=== PATIENT | female | born 2000 | race Caucasian/White ===

== ENCOUNTER 2025-04-19 13:20 | Emergency (ER) | payer MEDICAID, SELFPAY ==
[2025-04-19 13:31] VITALS: BP 119/77; PULSE 62; RESP 15; TEMP 36.7; O2SAT 98; BMI 24.1
[2025-04-19 13:40] LABS: Urine Pregnancy, HCG Qual. Negative (Negative)
--- NOTE | 2025-04-19 13:58 | ED_ITS ---
<Statement entered by Walter Camacho MD - 04/20/25 14:28> I was consulted by the PACO, and we discussed the complexity of the problems being addressed. I approved the treatment and management plan for this patient's care in the emergency department, thus performing a substantive portion of the medical decision making. Walter Camacho MD, GALO, FACEP Discharge Plan Disposition Patient Disposition: Home, Self-Care Condition: Good Referrals Follow up/Referrals: Provider,Referral, MD [Primary Care Provider, Medical] - See instructions Activity Restrictions/Add. Instructions Additional Instructions/Restrictions: You were seen for a missed period. Today your test was negative. Please follow up with your PCP or Radiologic Technology Instructor. Return to the ER if you have any additional concerns. Clinical Impressions Clinical Impression: Amenorrhea Instructions Patient Instructions: Absent Periods Print Language Print Language: Chinese Discharge ED Provider: Walter Camacho General Adult HPI General Chief complaint: Urogenital-Female Stated complaint: Abdominal Pain Time Seen by Provider: 04/19/25 13:27 Mode of Arrival: EMS Source of Information: Patient and EMS Description of Symptoms (Recalled from ER Triage Doc. by RN): pt wants to know if she is . lmp first week of mar. History of Present Illness HPI narrative: Patient presents with possible . She reports LMP 6 weeks ago on 03/03. She took a home test a few days ago and it was negative. She did have some spotting last week. She is afebrile. Denies N/V. complaint: possible Onset (ago): unknown Relieving factors: none Exacerbating factors: none Associated symptoms: denies other symptoms Treatments prior to arrival: none Related Data Allergies Allergy/AdvReac Type Severity Reaction Status Date / Time nut - unspecified Allergy Anaphylaxis Verified 04/19/25 13:36 [facility] Disclaimer: The information contained in this section may have been updated after the patient was seen, as this information can be updated by other users. Social History Smoking Status: Current every day smoker alcohol intake: never current occupational status: unemployed Travel in the last 8 weeks?: Inside the [place] ROS Obtained: Yes Systems reviewed as appropriate & no additional complaints except as documented Physical Exam General General appearance: alert and in no apparent distress Head Head exam: atraumatic and normocephalic Eye Eye exam: Present normal appearance and EOMI Chest Chest inspection: Present symmetric chest wall rise Respiratory Respiratory exam: Present normal lung sounds bilaterally; Absent wheezes or stridor Cardiovascular Cardiovascular exam: Present regular rate and normal rhythm; Absent systolic murmur Abdominal Exam Abdominal exam: Present soft and normal bowel sounds; Absent distention, guarding, rebound or rigidity Extremities Exam Extremities exam: Present full ROM Neurological Exam Neurological exam: Present alert and oriented X3 Psychiatric Psychiatric exam: Present normal affect and normal mood Skin Skin exam: Present warm, dry and intact Medical Decision Making Medical Records Screening: Per USPSTF and CDC recommendations, given the prevalence of disease in our region, it is our hospital?s policy to screen for HIV and viral Hepatitis for all patients aged 18 and over and those with ongoing risk factors. Avinash Inquiry Pt receiving controlled substance: No Vital Signs: 04/19/25 13:31 04/19/25 14:27 Temperature 98.1 F 98.4 F Temperature Source Oral Pulse Rate 72 Pulse Rate [Right] 62 Respiratory Rate 15 16 Blood Pressure 112/69 Blood Pressure [Right Arm] 119/77 Blood Pressure Mean [Right Arm] 91 02 Sat by Pulse Oximetry 98 Lab Data Lab Results 04/19/25 13:25: Urine HCG, Qual Negative Orders (Tests/Meds): ORDERS Category Date Time Status Urine , HCG Qual. Stat Lab 04/19/25 13:25 Completed Medical Decision Narrative: In summary patient is a 24-year-old female who presents the emergency department for evaluation of requesting test for missed menstrual cycle. Patient is hemodynamically upon arrival, afebrile. Unremarkable physical exam. Differential diagnosis includes early , miscarriage given recent spotting, irregular menses. Initial workup will be conducted with hCG. Initial LABS SHOW include hCG negative. Upon repeat evaluation patient is resting comfortable. Given this patient is appropriate for discharge home at this time with follow-up instructions., As well as return precaution. Critical Care Critical Care Time Critical Care Time: No
[2025-04-19 14:27] VITALS: BP 112/69; PULSE 72; RESP 16; TEMP 36.9; O2SAT 99
== END 2025-04-19 14:28 | disposition home or self-care (01) ==
PROVIDERS: Emergency Provider Student in an Organized Health Care Education/Training Program
DX: N91.2 Amenorrhea, unspecified (principal)
CPT/HCPCS: 81025; 99282

== ENCOUNTER 2025-04-28 13:07 | Outpatient (CLI) | payer MEDICAID, SELFPAY ==
--- NOTE | 2025-04-28 13:10 | XR_ITS ---
FINAL REPORT CLINICAL HISTORY: abdominal pain FINDINGS: An AP view of the abdomen with coned-down view of the pelvis was obtained. There is a nonspecific, nonobstructive bowel gas pattern. A large amount of stool is present. No abnormal calcifications are identified. IMPRESSION: Large amount of stool. Nonspecific, nonobstructive bowel gas pattern. Reviewed, Interpreted and Dictated by Domingo Ames MD Transcribed by Liza Vasquez Authenticated and [facility]
--- NOTE | 2025-04-28 13:10 | XR_ITS ---
FINAL REPORT CLINICAL HISTORY: Asthma FINDINGS: 2 views of the chest were obtained . The heart is normal in size. The mediastinum is within normal limits. The lungs are clear. There is no pneumothorax. Osseous structures are unremarkable. IMPRESSION: No acute cardiopulmonary process. Reviewed, Interpreted and Dictated by Domingo Ames MD Transcribed by Liza Vasquez Authenticated and [facility]
== END 2025-04-28 23:59 | disposition home or self-care (01) ==
LOC: RAD 13:09
PROVIDERS: PCP Nurse Practitioner Family; Visit Provider Nurse Practitioner Family
DX: J45.909 Unspecified asthma, uncomplicated (principal); R10.9 Unspecified abdominal pain; R93.3 Abnormal findings on diagnostic imaging of other parts of digestive tract
CPT/HCPCS: 71046; 74019

== ENCOUNTER 2025-05-06 12:14 | Outpatient (CLI) | payer MEDICAID, SELFPAY ==
--- NOTE | 2025-05-06 12:30 | XR_ITS ---
FINAL REPORT CLINICAL HISTORY: pain in pelvis, constipation COMPARISON: 04/28/2025 FINDINGS: A single supine view of the abdomen was obtained. There is a large amount of stool in the colon, consistent with constipation. Otherwise, the bowel gas pattern is unremarkable. There are no pathologic calcifications. Osseous structures are within normal limits. IMPRESSION: Large amount of stool in the colon consistent with constipation. Reviewed, Interpreted and Dictated by Devi Monsivais MD Transcribed by Liza Vasquez Authenticated and . [facility]
[2025-05-06 12:43] LABS: Hematocrit 43.7 % (37.0-47.0); Hemoglobin 14.0 g/dL (12.2-16.2); Immature Granulocytes % 0.4 %; Mean Corpuscular HGB Conc 32.0 g/dL (31.8-35.4); Mean Corpuscular Hemoglobin 27.2 pg (27.0-31.2); Mean Corpuscular Volume 84.9 fl (81-99); Nucleated Red Blood Cells % 0 %; Platelet Count 374 K/mm3 (142-424); Red Blood Count 5.15 M/mm3 (4.20-5.40); Red Cell Distribution Width-SD 41.0 fL; White Blood Count 8.4 K/mm3 (4.8-10.8)
[2025-05-06 13:21] LABS: Albumin Level 4.3 g/dl (3.5-5.0); Chloride 104 mmol/L (98-107); Potassium 4.7 mmoL/L (3.5-5.1); Sodium 136 mmol/L (136-145)
[2025-05-06 13:23] LABS: Blood Urea Nitrogen 15 mg/dl (7-17); Creatinine,Serum 0.70 mg/dl (0.52-1.04); Estimated Glomerular Filt Rate 104 ml/min (>60); GFR (African American) 125 ML/MIN (>60)
[2025-05-06 13:24] LABS: Alanine Aminotransferase 13 U/L (12-78); Albumin/Globulin Ratio 1.7 (1.1-1.8); Alkaline Phosphatase 84 U/L (38-126); Anion Gap 10.7 mEq/L (5-15); Aspartate Amino Transferase 22 U/L (14-36); Bilirubin,Total 0.3 mg/dl (0.2-1.3); Calcium 8.9 mg/dl (8.4-10.2); Carbon Dioxide 26 mmol/L (22.0-30.0); Globulin 2.5 g/dL (1.3-3.2); Glucose 77 mg/dl (74-100); Total Protein,Serum 6.8 g/dl (6.3-8.2)
== END 2025-05-06 23:59 | disposition home or self-care (01) ==
LOC: LAB 12:15
PROVIDERS: PCP Nurse Practitioner Family; Visit Provider Nurse Practitioner Family
DX: K59.00 Constipation, unspecified (principal); R10.20 Pelvic and perineal pain unspecified side
CPT/HCPCS: 36415; 74018; 80053; 85025

== ENCOUNTER 2025-05-07 10:21 | Outpatient (CLI) | payer MEDICAID, SELFPAY ==
--- NOTE | 2025-05-07 11:00 | US_ITS ---
PROCEDURE: US PELVIC CLINICAL INDICATION: COMPARISON: No exams were available for comparison FINDINGS: Transabdominal sonographic images of the pelvis were obtained. Patient declined transvaginal ultrasound. UTERUS: 7.8cm x 5.5cmx 4.0cm anteverted with a combined endometrial thickness of 10.5 mm. LEFT OVARY: 3.8 cmx3.2cmx2.6cm with a volume of 16.6ml. There is a follicle measuring 0.9 cm in size. RIGHT OVARY: 3.0 cmx 2.0cmx1.8 cm with a volume of 5.5ml. There are several small peripheral follicles. Both ovaries are seen and appear normal. Doppler flow to both ovaries are seen. There is a small amount of fluid in the cul-de-sac. IMPRESSION: 1. Anteverted uterus normal in shape and size. The endometrium is normal measuring 10.5 mm. 2. Both ovaries are seen and appear normal. There is a follicle in the left ovary and several small peripheral follicles in the right ovary. 3. There was a small amount of fluid in the cul-de-sac which may be physiologic or inflammatory. Dictated by: Mahesh Mabry MD 05/07/2025 12:00 Mahesh Mabry MD in [place] 05/07/2025 12:00
== END 2025-05-07 23:59 | disposition home or self-care (01) ==
LOC: RAD 10:21
PROVIDERS: PCP Nurse Practitioner Family; Visit Provider Nurse Practitioner Family
DX: N85.4 Malposition of uterus (principal); N83.02 Follicular cyst of left ovary; N83.01 Follicular cyst of right ovary; R93.89 Abnormal findings on diagnostic imaging of other specified body structures; R10.20 Pelvic and perineal pain unspecified side
CPT/HCPCS: 76856

== ENCOUNTER 2025-05-16 13:58 | Emergency (ER) | payer MEDICAID, SELFPAY ==
--- NOTE | 2025-05-16 14:00 | ECG_ITS ---
APPROVED REPORT Exam: Resting ECG HR:66 bpm ECG Measurements Heart Rate 66 AXES VA 124 P 64 QRSd 77 QRS 76 QT 412 T 70 QTc 426 Conclusion SINUS RHYTHM POSSIBLE RIGHT VENTRICULAR CONDUCTION DELAY [RSR (QR) IN V1/V2] BORDERLINE ECG UNCONFIRMED REPORT Normal sinus rhythm. No ST elevation or depression. QTc of 426 Electronically signed by : AILYN SAINZ, 05/17/2025 07:02:14
[2025-05-16 14:04] VITALS: BP 126/72; PULSE 74; O2SAT 100
--- NOTE | 2025-05-16 14:04 | PC.NURSE ---
DR SAINZ AT BEDSIDE
[2025-05-16 14:11] VITALS: BP 126/72; PULSE 82; RESP 16; TEMP 36.7; O2SAT 100; BMI 16.7
--- NOTE | 2025-05-16 14:14 | XR_ITS ---
FINAL REPORT TECHNIQUE: Single view chest CLINICAL HISTORY: Seizure COMPARISON: 04/28/2025 FINDINGS: A single view of the chest was obtained. The heart and mediastinum are within normal limits. The lungs are clear. There is no pneumothorax. IMPRESSION: No acute cardiopulmonary process. Reviewed, Interpreted and Dictated by Jason Gao MD Transcribed by Liza Vasquez Authenticated and [facility]
--- NOTE | 2025-05-16 14:14 | CT_ITS ---
FINAL REPORT TECHNIQUE: Noncontrast exam This study was performed with techniques to keep radiation doses as low as reasonably achievable, (ALARA). Individualized dose reduction techniques using automated exposure control or adjustment of mA and/or kV according to the patient''s size were employed. 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 There is no edema or hemorrhage. 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 Ventricles are normal. No mass effect is seen. Bone windows show no evidence of fracture. IMPRESSION: Congenital abnormalities as above. Recommend noncontrast MR correlation. No acute findings Reviewed, Interpreted and Dictated by Jason Gao MD Transcribed by Mame Grady Authenticated and [facility]
--- NOTE | 2025-05-16 14:15 | HMH.EDGENADL ---
Discharge Plan Disposition Patient Disposition: Home, Self-Care Condition: Good Prescriptions Prescriptions: No Action triamcinolone acetonide 0.1 % cream 1 applic topical TID 14 Days Qty: 80 0RF cetirizine 10 mg tablet 10 mg PO DAILY PRN (Reason: hives) Qty: 30 0RF sennosides [Senokot] 8.6 mg tablet 8.6 mg PO BID PRN (Reason: constipation) Qty: 30 0RF albuterol sulfate [Ventolin HFA] 90 mcg/actuation HFA aerosol inhaler 2 puff inhalation Q4-6H PRN (Reason: shortness of breath or wheezing) Qty: 8.5 2RF polyethylene glycol 3350 [Miralax] 17 gram/dose powder 17 g PO BID Qty: 238 0RF Referrals Follow up/Referrals: Yamila Brownlee APRN [Primary Care Provider, Medical] - See instructions Activity Restrictions/Add. Instructions Additional Instructions/Restrictions: Please ask Yamila Brownlee about referrals for psychiatry and neurology for your psychogenic non-epileptic seizures. Please do not drive for the next 3 months. If you have any new or worsening symptoms please return. Clinical Impressions Clinical Impression: Seizure-like activity Instructions Patient Instructions: DI for Seizure Disorder in Adults, DI for Seizure (Not Epilepsy/Seizure Disorder), DI for Seizure Disorder in Child Print Language Print Language: Portuguese Discharge ED Provider: Anton Kc General Adult HPI <Etienne Chaidez MD - Last Filed: 05/16/25 15:08> General Chief complaint: Seizure Stated complaint: seizures Time Seen by Provider: 05/16/25 14:02 Mode of Arrival: Ambulatory Source of Information: Patient Limitations: No Limitations History of Present Illness HPI narrative: Jeannette Zelaya is a 24y female with a history of seizures, migraines, COPD, bipolar 1 disorder, ADHD, autism, PTSD who presents to the emergency department for complaints of a seizure. Patient states that she was at her PCP office and when PCP walked in, she had been seizing for 10 minutes. She states that she came out of the seizure on her own. Boyfriend at bedside states that she is having multiple seizures a day and was supposed to be taking Topamax, however states that she has more seizures when taking Topamax. He states that stress seems to bring the seizures on. He also states that at night, he would notice that she twitches frequently and thinks that she is having seizures while she was sleeping as well. Patient states that she is oftentimes able to bring herself out of the seizures or that a loud noise or jerking motion will stop the seizure. Sometimes it is full body jerking and other times it is just staring off into space. Boyfriend states that if she takes a delta 8 gummy, she does not have seizures. Related Data Previous Rx's ?Medication ?Instructions ?Recorded cetirizine 10 mg tablet 10 mg PO DAILY PRN hives #30 tabs 04/28/25 triamcinolone acetonide 0.1 % 1 applic topical TID 14 days #80 04/28/25 topical cream grams sennosides 8.6 mg tablet (Senokot) 8.6 mg PO BID PRN constipation #30 04/29/25 tabs albuterol sulfate 90 mcg/actuation 2 puff inhalation Q4-6H PRN 05/16/25 aerosol inhaler (Ventolin HFA) shortness of breath or wheezing #8.5 grams polyethylene glycol 3350 17 17 g PO BID #238 grams 05/16/25 gram/dose oral powder (Miralax) Allergies Allergy/AdvReac Type Severity Reaction Status Date / Time Penicillins Allergy Mild Rash Verified 05/16/25 13:18 nut - unspecified Allergy Anaphylaxis Verified 05/16/25 13:18 adhesive tape AdvReac Mild burning, Verified 05/16/25 13:18 rash, sob latex AdvReac Mild Rash and Verified 05/16/25 13:18 shortness of breath [facility] <Etienne Chaidez MD - Last Filed: 05/16/25 15:08> [facility] Disclaimer: The information contained in this section may have been updated after the patient was seen, as this information can be updated by other users. Medical History Autism ADHD Bipolar 1 disorder Post traumatic stress disorder (PTSD) COPD (chronic obstructive pulmonary disease) Schizoaffective disorder Migraine Seizure Surgical History H/O eye surgery Social History Smoking Status: Current every day smoker tobacco type: e-cigarettes smoking status start date: 2022 alcohol intake: never substance use type: denies use current occupational status: disabled Travel in the last 8 weeks?: None Have you lived/traveled outside US in past 30 days?: No Contact w/someone who lives/traveled outside US past 30 days?: No Exposure to someone with infectious disease in past 14 days?: No Do you have a fever (greater than 100.4 F or 38 C)?: No Have you tested positive for COVID-19?: No Exposed to someone with COVID-19 in past 14 days?: No Do you have a sore throat?: No Do you have a cough?: No Do you have any weakness?: No Do you have any diarrhea?: No Are you experiencing any unusual bleeding?: No Do you have any muscle aches/pain?: No Do you have any abdominal pain?: No Are you experiencing loss of taste or smell?: No <Etienne Chaidez MD - Last Filed: 05/16/25 15:08> ROS Obtained: Yes Systems reviewed as appropriate & no additional complaints except as documented Physical Exam <Etienne Chaidez MD - Last Filed: 05/16/25 15:08> General General appearance: alert and in no apparent distress Head Head exam: atraumatic Eye Eye exam: Present normal appearance ENT ENT exam: Present normal external ear exam Neck Neck exam: Present full ROM Chest Chest inspection: Present symmetric chest wall rise Respiratory Respiratory exam: Present normal lung sounds bilaterally; Absent respiratory distress, wheezes or stridor Cardiovascular Cardiovascular exam: Present regular rate and normal rhythm Abdominal Exam Abdominal exam: Present soft; Absent tenderness or guarding Extremities Exam Extremities exam: Present normal inspection Back Exam Back exam: Present normal inspection Neurological Exam Neurological exam: Present alert and oriented X3 Psychiatric Psychiatric exam: Present normal affect Skin Skin exam: Present warm and dry Medical Decision Making <Etienne Chaidez MD - Last Filed: 05/16/25 15:08> Medical Records Screening: Per USPSTF and CDC recommendations, given the prevalence of disease in our region, it is our hospital?s policy to screen for HIV and viral Hepatitis for all patients aged 18 and over and those with ongoing risk factors. Avinash Inquiry Pt receiving controlled substance: No Vital Signs: 05/16/25 14:04 05/16/25 14:11 05/16/25 14:30 Temperature 98.0 F Temperature Source Oral Pulse Rate 74 69 Pulse Rate [Radial] 82 Respiratory Rate 16 Blood Pressure 126/72 120/87 Blood Pressure [Right Arm] 126/72 Blood Pressure Mean [Right Arm] 90 Blood Pressure Source [Right Arm] Automatic Cuff Blood Pressure Position [Right Arm] Sitting 02 Sat by Pulse Oximetry 100 100 100 Oxygen Delivery Method Room Air Room Air Room Air 05/16/25 15:00 05/16/25 15:30 Temperature Temperature Source Pulse Rate 76 63 Pulse Rate [Radial] Respiratory Rate Blood Pressure 120/66 120/79 Blood Pressure [Right Arm] Blood Pressure Mean [Right Arm] Blood Pressure Source [Right Arm] Blood Pressure Position [Right Arm] 02 Sat by Pulse Oximetry 99 98 Oxygen Delivery Method Room Air Room Air Lab Data Lab Results 05/16/25 14:22: WBC 8.2, RBC 5.07, Hgb 13.8, Hct 42.8, MCV 84.4, MCH 27.2, MCHC 32.2, RDW 13.2, Plt Count 357, MPV 10.1, Neut % (Auto) 66.1, Lymph % (Auto) 19.1, Bosque % (Auto) 10.1 H, Eos % (Auto) 3.6, Baso % (Auto) 0.9, Neut # (Auto) 5.4, Lymph # (Auto) 1.6, Bosque # (Auto) 0.8, Eos # (Auto) 0.3, Baso # (Auto) 0.1, Sodium 137, Potassium 3.6, Chloride 109 H, Carbon Dioxide 21 L, Anion Gap 10.6, BUN 8, Creatinine 0.80, Estimated Creat Clear 81, Estimated GFR 89, Est GFR ( Amer) 108, Glucose 81, Calcium 9.0, Magnesium 2.0, Total Bilirubin 0.4, AST 28, ALT 17, Alkaline Phosphatase 86, Total Creatine Kinase 107, Total Protein 7.5, Albumin 4.1, Globulin 3.4 H, Albumin/Globulin Ratio 1.2, Serum HCG, Qual Negative, Urine Color Yellow, Urine Appearance Clear, Urine pH 6.0, Ur Specific Hamilton 1.020, Urine Protein Negative, Urine Glucose (UA) Negative, Urine Ketones Negative, Urine Blood Negative, Urine Nitrate Positive A, Urine Bilirubin Negative, Urine Urobilinogen 0.2, Ur Leukocyte Esterase Negative, Urine RBC None, Urine WBC None, Ur Squamous Epith Cells 3-5, Urine Bacteria 3+, Urine Opiates Screen Negative, Urine Methadone Screen Negative, Ur Barbituates Screen Negative, Ur Phencyclidine Scrn Negative, Ur Amphetamines Screen Negative, U Benzodiazepines Scrn Negative, Urine Cocaine Screen Negative, U Marijuana (THC) Screen Negative 05/16/25 14:27: VBG pH 7.31, VBG pCO2 40.9, VBG pO2 42.1 H, VBG HCO3 20.1 L, VBG Total CO2 21.3 L, VBG O2 Saturation 74.3 H, VBG Base Excess -6.2 L, VBG Lactic Acid 1.3 05/16/25 14:22 05/16/25 14:22 Orders (Tests/Meds): ORDERS Category Date Time Status CT head/brain wo con Stat Cat Scan 05/16/25 14:14 Completed CXR --portable [XR chest portable] Stat Exams 05/16/25 14:14 Completed CBC w/Auto Diff [Complete Blood Count Auto Diff] Stat Lab 05/16/25 14:22 Completed CK [Creatine Kinase] Stat Lab 05/16/25 14:22 Completed CMP [Comprehensive Metabolic Panel] Stat Lab 05/16/25 14:22 Completed Magnesium Stat Lab 05/16/25 14:22 Completed Serum [HCG Qualitative, Serum] Stat Lab 05/16/25 14:22 Completed UA [Urinalysis and Microscopic] Stat Lab 05/16/25 14:22 Completed UDS [Drug Screen,Urine] Stat Lab 05/16/25 14:22 Completed Urine Culture Stat Micro 05/16/25 14:22 Received Urine Culture Stat Micro 05/16/25 15:19 Ordered VBG [Venous Blood Gas] Stat RT 05/16/25 14:27 Completed ECG Data Tracing #1: I reviewed this ECG and interpreted as documented below: Normal sinus rhythm. No ST elevation or depression. QTc normal at 426 Medical Decision Narrative: Jeannette Zelaya is a 24y female with a history of seizures, migraines, COPD, bipolar 1 disorder, ADHD, autism, PTSD who presents to the emergency department for complaints of a seizure. Patient states that she was at her PCP office and when PCP walked in, she had been seizing for 10 minutes. She states that she came out of the seizure on her own. Boyfriend at bedside states that she is having multiple seizures a day and was supposed to be taking Topamax, however states that she has more seizures when taking Topamax. He states that stress seems to bring the seizures on. He also states that at night, he would notice that she twitches frequently and thinks that she is having seizures while she was sleeping as well. Patient states that she is oftentimes able to bring herself out of the seizures or that a loud noise or jerking motion will stop the seizure. Sometimes it is full body jerking and other times it is just staring off into space. Boyfriend states that if she takes a delta 8 gummy, she does not have seizures. 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 On arrival, patient is hemodynamically stable, afebrile, on a percent SpO2 on room air. Breathing comfortably and in no distress. She is alert and oriented. She is moving all extremities with no focal neurological deficit. Cardiopulmonary exam without wheezing, rales or rhonchi. Abdomen soft, nontender nondistended. Differential diagnosis includes, but is not limited to: Breakthrough seizures, provoked seizures,, electrolyte derangement, metabolic derangement, psychogenic nonepileptic seizures, intracranial mass, cardiac arrhythmia, among others. The most morbid conditions were considered and workup was based on these. Workup in the emergency room included: Urinalysis, magnesium level, serum test, UA, UDS, CK, CMP, CBC, VBG with lactate,, CT head without contrast, Chest x-ray EKG shows normal sinus rhythm. No ischemic changes. See interpretation above Patient's workup shows no leukocytosis, no anemia, platelets within normal limits, VBG without acidosis or alkalosis. Bicarb mildly low at 20.1, lactate normal at 1.3. Electrolytes within normal limits. No MANINDER. Liver enzymes and bilirubin within normal notes. Magnesium normal at 2.0. Serum pricey test negative. Creatine kinase negative at 107. Urine is nitrate positive but no white blood cells or red blood cells and no leukocyte esterase. Bacteria 3+. Low concern for urinary tract infection given patient has no symptoms of a urinary tract infection. Chest x-ray interpreted by me personally. No focal consolidation, no pneumothorax, no widened mediastinum, no enlargement of the cardiac silhouette. Unremarkable chest x-ray. See radiology report for details. At this time, patient's care was handed off to the oncoming physician pending completion of patient's CT imaging and reassessment. <Anton Kc, - Last Filed: 05/16/25 16:41> Medical Records Medical records reviewed: Yes I reviewed the patient's medical records. Vital Signs: 05/16/25 14:04 05/16/25 14:11 05/16/25 14:30 Temperature 98.0 F Temperature Source Oral Pulse Rate 74 69 Pulse Rate [Radial] 82 Respiratory Rate 16 Blood Pressure 126/72 120/87 Blood Pressure [Right Arm] 126/72 Blood Pressure Mean [Right Arm] 90 Blood Pressure Source [Right Arm] Automatic Cuff Blood Pressure Position [Right Arm] Sitting 02 Sat by Pulse Oximetry 100 100 100 Oxygen Delivery Method Room Air Room Air Room Air 05/16/25 15:00 05/16/25 15:30 Temperature Temperature Source Pulse Rate 76 63 Pulse Rate [Radial] Respiratory Rate Blood Pressure 120/66 120/79 Blood Pressure [Right Arm] Blood Pressure Mean [Right Arm] Blood Pressure Source [Right Arm] Blood Pressure Position [Right Arm] 02 Sat by Pulse Oximetry 99 98 Oxygen Delivery Method Room Air Room Air Lab Data Lab Results 05/16/25 14:22: WBC 8.2, RBC 5.07, Hgb 13.8, Hct 42.8, MCV 84.4, MCH 27.2, MCHC 32.2, RDW 13.2, Plt Count 357, MPV 10.1, Neut % (Auto) 66.1, Lymph % (Auto) 19.1, Bosque % (Auto) 10.1 H, Eos % (Auto) 3.6, Baso % (Auto) 0.9, Neut # (Auto) 5.4, Lymph # (Auto) 1.6, Bosque # (Auto) 0.8, Eos # (Auto) 0.3, Baso # (Auto) 0.1, Sodium 137, Potassium 3.6, Chloride 109 H, Carbon Dioxide 21 L, Anion Gap 10.6, BUN 8, Creatinine 0.80, Estimated Creat Clear 81, Estimated GFR 89, Est GFR ( Amer) 108, Glucose 81, Calcium 9.0, Magnesium 2.0, Total Bilirubin 0.4, AST 28, ALT 17, Alkaline Phosphatase 86, Total Creatine Kinase 107, Total Protein 7.5, Albumin 4.1, Globulin 3.4 H, Albumin/Globulin Ratio 1.2, Serum HCG, Qual Negative, Urine Color Yellow, Urine Appearance Clear, Urine pH 6.0, Ur Specific Hamilton 1.020, Urine Protein Negative, Urine Glucose (UA) Negative, Urine Ketones Negative, Urine Blood Negative, Urine Nitrate Positive A, Urine Bilirubin Negative, Urine Urobilinogen 0.2, Ur Leukocyte Esterase Negative, Urine RBC None, Urine WBC None, Ur Squamous Epith Cells 3-5, Urine Bacteria 3+, Urine Opiates Screen Negative, Urine Methadone Screen Negative, Ur Barbituates Screen Negative, Ur Phencyclidine Scrn Negative, Ur Amphetamines Screen Negative, U Benzodiazepines Scrn Negative, Urine Cocaine Screen Negative, U Marijuana (THC) Screen Negative 05/16/25 14:27: VBG pH 7.31, VBG pCO2 40.9, VBG pO2 42.1 H, VBG HCO3 20.1 L, VBG Total CO2 21.3 L, VBG O2 Saturation 74.3 H, VBG Base Excess -6.2 L, VBG Lactic Acid 1.3 Orders (Tests/Meds): ORDERS Category Date Time Status CT head/brain wo con Stat Cat Scan 05/16/25 14:14 Completed CXR --portable [XR chest portable] Stat Exams 05/16/25 14:14 Completed CBC w/Auto Diff [Complete Blood Count Auto Diff] Stat Lab 05/16/25 14:22 Completed CK [Creatine Kinase] Stat Lab 05/16/25 14:22 Completed CMP [Comprehensive Metabolic Panel] Stat Lab 05/16/25 14:22 Completed Magnesium Stat Lab 05/16/25 14:22 Completed Serum [HCG Qualitative, Serum] Stat Lab 05/16/25 14:22 Completed UA [Urinalysis and Microscopic] Stat Lab 05/16/25 14:22 Completed UDS [Drug Screen,Urine] Stat Lab 05/16/25 14:22 Completed Urine Culture Stat Micro 05/16/25 14:22 Received Urine Culture Stat Micro 05/16/25 15:19 Ordered VBG [Venous Blood Gas] Stat RT 05/16/25 14:27 Completed Medical Decision Narrative: Jeannette Zelaya is a 24y female with a history of seizures, migraines, COPD, bipolar 1 disorder, ADHD, autism, PTSD who presents to the emergency department for complaints of a seizure. Patient states that she was at her PCP office and when PCP walked in, she had been seizing for 10 minutes. She states that she came out of the seizure on her own. Boyfriend at bedside states that she is having multiple seizures a day and was supposed to be taking Topamax, however states that she has more seizures when taking Topamax. He states that stress seems to bring the seizures on. He also states that at night, he would notice that she twitches frequently and thinks that she is having seizures while she was sleeping as well. Patient states that she is oftentimes able to bring herself out of the seizures or that a loud noise or jerking motion will stop the seizure. Sometimes it is full body jerking and other times it is just staring off into space. Boyfriend states that if she takes a delta 8 gummy, she does not have seizures. 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 On arrival, patient is hemodynamically stable, afebrile, on a percent SpO2 on room air. Breathing comfortably and in no distress. She is alert and oriented. She is moving all extremities with no focal neurological deficit. Cardiopulmonary exam without wheezing, rales or rhonchi. Abdomen soft, nontender nondistended. Differential diagnosis includes, but is not limited to: Breakthrough seizures, provoked seizures,, electrolyte derangement, metabolic derangement, psychogenic nonepileptic seizures, intracranial mass, cardiac arrhythmia, among others. The most morbid conditions were considered and workup was based on these. Workup in the emergency room included: Urinalysis, magnesium level, serum test, UA, UDS, CK, CMP, CBC, VBG with lactate,, CT head without contrast, Chest x-ray EKG shows normal sinus rhythm. No ischemic changes. See interpretation above Patient's workup shows no leukocytosis, no anemia, platelets within normal limits, VBG without acidosis or alkalosis. Bicarb mildly low at 20.1, lactate normal at 1.3. Electrolytes within normal limits. No MANINDER. Liver enzymes and bilirubin within normal notes. Magnesium normal at 2.0. Serum pricey test negative. Creatine kinase negative at 107. Urine is nitrate positive but no white blood cells or red blood cells and no leukocyte esterase. Bacteria 3+. Low concern for urinary tract infection given patient has no symptoms of a urinary tract infection. Chest x-ray interpreted by me personally. No focal consolidation, no pneumothorax, no widened mediastinum, no enlargement of the cardiac silhouette. Unremarkable chest x-ray. See radiology report for details. At this time, patient's care was handed off to the oncoming physician pending completion of patient's CT imaging and reassessment. This is Dr. Kc. At the time of shift change patient was waiting on a CT scan of the head to result. I did independently evaluate the patient and obtained collateral history. She tells her that she recently moved here from [place]. She states that while she was in [place] she had an extensive workup at a neurologist for seizures with CT scans of the head, MRI, and EEG monitoring. She states they were never able to catch true seizure activity on her EEG studies. She states that she was formally told that she had psychogenic nonepileptic seizures and she further states that she typically only has seizures when she is feeling extraordinarily stressed. As stated above the patient was in the clinic today and ended up having some seizure-like activity reported by her primary care provider and was transferred here for further evaluation. While under my care in the emergency department her boyfriend at the bedside did alert us that she was having seizure-like activity. Upon entering the room the patient was laying on the stretcher and was experiencing no abnormal movements. Her eyes were fixed in the forward position and she did not respond to externally applied stimuli. She did not have any tachycardia or hypoxia developed during the seizure. No tonic-clonic shaking. This was transient and short-lived. She quickly returned to her baseline mental status and did not have any evidence of a postictal episode. CT scan did result and demonstrated no acute findings. There is some discussion about congenital cerebellar abnormalities. I relayed this to the patient and she states that she was told this in the past from her prior CTs and MRIs and does not seem to be concerned about this. I have thoroughly discussed with the patient that her seizures do not appear to be typical of a true underlying seizure disorder and that I do agree with her prior assessment that this is likely psychogenic nonepileptic seizures. I have asked her to follow back up with her primary care physician and pursue psychiatry as well as neurology follow-up. At this time all question have been answered and all parties are agreeable with the decision to discharge home Critical Care <Etienne Chaidez MD - Last Filed: 05/16/25 15:08> Critical Care Time Critical Care Time: No
[2025-05-16 14:29] LABS: Hematocrit 42.8 % (37.0-47.0); Hemoglobin 13.8 g/dL (12.2-16.2); Immature Granulocytes % 0.2 %; Mean Corpuscular HGB Conc 32.2 g/dL (31.8-35.4); Mean Corpuscular Hemoglobin 27.2 pg (27.0-31.2); Mean Corpuscular Volume 84.4 fl (81-99); Nucleated Red Blood Cells % 0 %; Platelet Count 357 K/mm3 (142-424); Red Blood Count 5.07 M/mm3 (4.20-5.40); Red Cell Distribution Width-SD 40.2 fL; White Blood Count 8.2 K/mm3 (4.8-10.8)
[2025-05-16 14:29] LABS: Lactate Venous 1.3 mmol/L (0.4-2.0); VBG HCO3 20.1 mmol/L (23-30); VBG PCO2 40.9 mmol/L (35-51); VBG PH 7.31 mmol/L (7.31-7.41); VBG PO2 42.1 mmol/L (28-40)
[2025-05-16 14:30] VITALS: BP 120/87; PULSE 69; O2SAT 100
[2025-05-16 14:37] LABS: Alanine Aminotransferase 17 U/L (12-78); Albumin Level 4.1 g/dl (3.5-5.0); Albumin/Globulin Ratio 1.2 (1.1-1.8); Alkaline Phosphatase 86 U/L (38-126); Anion Gap 10.6 mEq/L (5-15); Aspartate Amino Transferase 28 U/L (14-36); Bilirubin,Total 0.4 mg/dl (0.2-1.3); Blood Urea Nitrogen 8 mg/dl (7-17); Calcium 9.0 mg/dl (8.4-10.2); Carbon Dioxide 21 mmol/L (22.0-30.0); Chloride 109 mmol/L (98-107); Creatine Kinase 107 U/L (30-135); Creatinine Clearance Estimated 81 mL/min (50-200); Creatinine,Serum 0.80 mg/dl (0.52-1.04); Estimated Glomerular Filt Rate 89 ml/min (>60); GFR (African American) 108 ML/MIN (>60); Globulin 3.4 g/dL (1.3-3.2); Glucose 81 mg/dl (74-100); Magnesium 2.0 mg/dl (1.6-2.3); Potassium 3.6 mmoL/L (3.5-5.1); Sodium 137 mmol/L (136-145); Total Protein,Serum 7.5 g/dl (6.3-8.2)
[2025-05-16 14:45] LABS: HCG Qualitative, Serum Negative (Negative); Microscopic, Urine URINE MICROSCOPIC (MICROSCOPIC)
[2025-05-16 14:48] LABS: Bilirubin,Urine Negative (Negative); Color,Urine YELLOW (Yellow); Glucose,Urine (UA) Negative (Negative); Ketones,Urine Negative (Negative); Leukocyte Esterase,Urine Negative (Negative); PH,Urine 6.0 (5.0-8.5); Protein,Urine Negative (Negative); Specific Gravity, Urine 1.020 (1.005-1.030); Urobilinogen,Urine 0.2 EU/dl (0.2)
[2025-05-16 14:59] LABS: Bacteria,Urine 3+ /lpf
[2025-05-16 15:00] VITALS: BP 120/66; PULSE 76; O2SAT 99
[2025-05-16 15:16] LABS: Amphetamine/Metha Screen,Urine Negative ng/ml (<1000)
[2025-05-16 15:17] LABS: Barbiturates Screen,Urine Negative ng/ml (<200)
[2025-05-16 15:18] LABS: Benzodiazepines Screen,Urine Negative ng/ml (<200)
[2025-05-16 15:19] LABS: Methadone Screen,Urine Negative ng/ml (<300)
[2025-05-16 15:20] LABS: Opiate Screen,Urine Negative ng/ml (<300)
[2025-05-16 15:21] LABS: Phencyclidine Screen,Urine Negative ng/ml (<25)
[2025-05-16 15:30] VITALS: BP 120/79; PULSE 63; O2SAT 98
[2025-05-16 16:44] VITALS: BP 132/59; PULSE 67; RESP 19; TEMP 36.7; O2SAT 98
--- NOTE | 2025-05-17 09:42 | PC.NURSE ---
Urine culture reviewed by Dr. Chaidez. Cefdinir 300 mg PO BID x 7 days sent to [facility] in [place]. Attempted to call patient, no answer. Will try again later.
--- NOTE | 2025-05-17 22:12 | PC.NURSE ---
attempted to call patient and inform of new prescription. unable to reach pt at this time
== END 2025-05-16 16:46 | disposition home or self-care (01) ==
PROVIDERS: Student in an Organized Health Care Education/Training Program; Emergency Provider Student in an Organized Health Care Education/Training Program; PCP Nurse Practitioner Family
DX: R56.9 Unspecified convulsions (principal)
CPT/HCPCS: 70450; 71045; 80053; 80307; 81001; 82550; 82803; 83735; 84703; 85025; 87086; 87088; 87186; 93005; 99285